=== PATIENT | male | born 1995 | race African-American/Black ===

== ENCOUNTER 2019-02-09 16:11 | Emergency (ER) | payer MEDICAID ==
[~2019-02-09] VITALS: Ht 175.3 cm; Wt 67.4 kg
[2019-02-09 16:37] VITALS: BP 115/66
[2019-02-09] MEDS ORDERED: PROCHC RC (17:53)
== END 2019-02-09 18:39 | disposition home or self-care (01) ==
LOC: ER 16:12
DX: K64.4 Residual hemorrhoidal skin tags (principal); K59.00 Constipation, unspecified; Z79.899 Other long term (current) drug therapy
CPT/HCPCS: 99283

== ENCOUNTER 2020-07-29 21:48 | Emergency (ER) | payer MEDICAID ==
[~2020-07-29] VITALS: Ht 175.3 cm; Wt 68.2 kg
[~2020-07-29 21:48] MED LIST: PROCHC RC
[2020-07-29 21:53] VITALS: BP 115/79
[2020-07-29] MEDS ORDERED: CEPH250T PO (22:53)
== END 2020-07-29 22:59 | disposition home or self-care (01) ==
LOC: ER 21:49
DX: S61.215A Laceration without foreign body of left ring finger without damage to nail, initial encounter (principal); Z79.2 Long term (current) use of antibiotics; Z79.899 Other long term (current) drug therapy; X58.XXXA Exposure to other specified factors, initial encounter; Y93.89 Activity, other specified; Y92.89 Other specified places as the place of occurrence of the external cause; Y99.8 Other external cause status
CPT/HCPCS: 99283

== ENCOUNTER 2020-10-23 17:51 | Emergency (ER) | payer MEDICAID ==
[~2020-10-23] VITALS: Ht 175.3 cm; Wt 74.1 kg
[2020-10-23 21:18] VITALS: BP 116/68
== END 2020-10-23 21:19 | disposition home or self-care (01) ==
LOC: ER 17:52
DX: M79.641 Pain in right hand (principal); Z79.899 Other long term (current) drug therapy
CPT/HCPCS: 73130; 99283

== ENCOUNTER 2022-01-21 09:13 | Emergency (ER) | payer MEDICAID ==
[~2022-01-21] VITALS: Ht 175.3 cm; Wt 79.5 kg
[2022-01-21 09:27] VITALS: BP 117/69
[2022-01-21] MEDS ORDERED: ALBU8.5H17 INH (10:37)
[2022-01-21] MEDS ORDERED: METH4TAB3 PO (10:37)
[2022-01-21] MEDS ORDERED: DOXY100C76 PO (10:37)
== END 2022-01-21 11:06 | disposition home or self-care (01) ==
LOC: ER 09:13
DX: J20.9 Acute bronchitis, unspecified (principal); F17.200 Nicotine dependence, unspecified, uncomplicated
CPT/HCPCS: 99283

== ENCOUNTER 2023-02-13 19:10 | Emergency (ER) | payer MEDICAID ==
[~2023-02-13] VITALS: Ht 175.3 cm; Wt 62.8 kg
[~2023-02-13 19:10] MED LIST changes: +ALBU8.5H17 INH; +METH4TAB3 PO
[2023-02-13 19:39] VITALS: BP 117/75; PULSE 72; RESP 18; TEMP 98; O2SAT 100
== END 2023-02-13 23:53 | disposition left against medical advice (07) ==
LOC: ER 19:11
DX: M25.532 Pain in left wrist (principal); Z53.21 Procedure and treatment not carried out due to patient leaving prior to being seen by health care provider; V29.888A Rider (driver) (passenger) of other motorcycle injured in other specified transport accidents, initial encounter; Y93.89 Activity, other specified; Y92.89 Other specified places as the place of occurrence of the external cause; Y99.8 Other external cause status
CPT/HCPCS: 99281

== ENCOUNTER 2023-06-30 16:22 | Emergency (ER) | payer MEDICAID ==
[~2023-06-30] VITALS: Ht 177.8 cm; Wt 69.9 kg
[2023-06-30 17:35] VITALS: BP 115/84; PULSE 65; O2SAT 98
[2023-06-30] MEDS ORDERED: HYDR-3965 PO (17:47)
[2023-06-30] MEDS ORDERED: CLIN-97 PO (17:47)
[2023-06-30 18:02] VITALS: RESP 16; TEMP 97.8
[2023-07-01] MEDS ORDERED: IBUP-1984 PO (06:29)
== END 2023-06-30 18:03 | disposition home or self-care (01) ==
LOC: ER 16:23
DX: K02.9 Dental caries, unspecified (principal); Z79.899 Other long term (current) drug therapy
CPT/HCPCS: 99283

== ENCOUNTER 2023-07-01 03:47 | Emergency (ER) | payer MEDICAID ==
[~2023-07-01] VITALS: Ht 175.3 cm; Wt 72.7 kg
[~2023-07-01 03:47] MED LIST changes: +CLIN-97 PO; +HYDR-3965 PO
[2023-07-01 04:01] VITALS: BP 121/88; PULSE 72; RESP 17; O2SAT 100
[2023-07-01] MEDS ORDERED: IBUP-1984 PO (06:29)
[2023-07-01] MEDS: ibuprofen tablet 400 MG TABLET PO ONE (06:34)
[2023-07-01 06:37] VITALS: TEMP 98
== END 2023-07-01 07:15 | disposition home or self-care (01) ==
LOC: ER 03:47
DX: K08.89 Other specified disorders of teeth and supporting structures (principal); Z79.2 Long term (current) use of antibiotics; Z79.1 Long term (current) use of non-steroidal anti-inflammatories (NSAID); Z79.899 Other long term (current) drug therapy
CPT/HCPCS: 99282

== ENCOUNTER 2023-12-01 09:04 | Emergency (ER) | payer MEDICAID ==
[~2023-12-01] VITALS: Ht 175.3 cm; Wt 72.6 kg
[~2023-12-01 09:04] MED LIST changes: -HYDR-3965 PO
[2023-12-01 09:13] VITALS: BP 111/70; PULSE 74; RESP 18; TEMP 97.8; O2SAT 99
== END 2023-12-01 09:53 | disposition home or self-care (01) ==
LOC: ER 09:05
DX: A08.39 Other viral enteritis (principal); Z88.8 Allergy status to other drugs, medicaments and biological substances; Z79.2 Long term (current) use of antibiotics; Z79.52 Long term (current) use of systemic steroids
CPT/HCPCS: 99281